=== PATIENT | male | born 1990 | race Caucasian/White ===

== ENCOUNTER 2024-12-01 12:04 | Emergency (ER) | payer MEDICARE, MEDICAID, SELFPAY ==
[2024-12-01] VITALS (15 sets, daily range): BP systolic 130–152; BP diastolic 70–97; PULSE 72–82; TEMP 36.6; O2SAT 98–99; BMI 45.0
--- NOTE | 2024-12-01 13:20 | XR_ITS ---
[facility] [place] [id number] Patient Name: COLTON LEE MRN: [id number] date: 1990 Sex: M Assigned Patient Location: ER Current Patient Location: ER Accession/Order Number: [id number] Exam Date: 12/01/2024 15:26 Report Date: 12/01/2024 15:28 At the request of: SABINA HANNON Procedure: XR chest 2V XR chest 2V 12/01/2024 3:03 PM SIGNS AND SYMPTOMS: ^dizziness , cough PROTOCOL: Frontal and lateral radiograph of the chest COMPARISON: None FINDINGS: The trachea is midline. The heart and mediastinal structures are within normal limits. The lung parenchyma is clear. There is a dextro convex curvature of the thoracic spine. XR/XR chest 2V IMPRESSION: No acute cardiopulmonary pathology. Impression dictated by: Brian Carlton M.D. 12/01/2024 3:28 PM Dictation Location: [place] [id number] Electronically authenticated by: [id number] Y Date: 12/01/2024 15:28
--- NOTE | 2024-12-01 13:20 | ECG_ITS ---
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 Measurements Intervals Cope Rate: 76 P: 46 MI: 148 QRS: 22 QRSD: 88 T: 63 QT: 372 QTc: 402 Interpretive Statements [address] ELEV, PROBABLE NORMAL EARLY REPOL PATTERN Nonspecific T wave changes Abnormal ECG No previous ECG available for comparison Electronically Signed On 12-03-2024 15:32:40 EDT by JORGE JULIAN M.D.
--- NOTE | 2024-12-01 13:21 | CT_ITS ---
[address] [address] Patient Name: COLTON Bhakta LEE MRN: [id number] date: 1990 Sex: M Assigned Patient Location: ER Current Patient Location: ER Accession/Order Number: [id number] Exam Date: 12/01/2024 15:17 Report Date: 12/01/2024 15:25 At the request of: SABINA HANNON Procedure: CT abdomen pelvis wo con CT abdomen pelvis wo con 12/01/2024 2:55 PM SIGNS AND SYMPTOMS: ^abd pain, dysuria, recent UTI, cough TECHNIQUE: Multidetector ct axial images of the abdomen and pelvis were obtained without IV contrast. Multiplanar reformats were performed and reviewed to further define anatomy and possible pathology. CT was performed with one or more of the following dose reduction techniques: Automated exposure control, adjustment of the mA and/or kV according to patient size, or use of iterative reconstruction technique. COMPARISON: None. FINDINGS: Lower Chest: There is mild dependent atelectasis in the lung bases. ABDOMEN: Liver: Within normal limits. Bile Ducts: Normal caliber. Gallbladder: There is a stone in the gallbladder lumen. Pancreas: Within normal limits. Spleen: Within normal limits. Adrenals: Within normal limits. Kidneys: Within normal limits. Pelvis: Reproductive Organs: No pelvic masses. Ureters: Within normal limits. Bladder: Within normal limits. Bowel: Normal caliber. There are a few uncomplicated colonic diverticula. There is a normal appendix in the right lower quadrant. Mesenteric Lymph Nodes: No enlarged mesenteric lymph nodes. Peritoneum: No ascites or free air, no fluid collection. Vessels: within normal limits Retroperitoneum: Within normal limits. Abdominal Wall: Within normal limits. Bones: Degenerative changes are noted in the lumbar spine there is a levoconvex curvature at the thoracolumbar junction. CT/CT abdomen pelvis wo con IMPRESSION: No bowel obstruction or obstructive uropathy. No acute intra-abdominal pathology. Uncomplicated colonic diverticula noted. 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 Impression dictated by: Brian Carlton M.D. 12/01/2024 3:25 PM Dictation Location: [place] [address] Electronically authenticated by: [id number] Y Date: 12/01/2024 15:25
[2024-12-01] MEDS: KETOROLAC TROMETHAMINE 30 MG/ML VIAL IVP (13:43)
[2024-12-01] MEDS: 0.9 % SODIUM CHLORIDE 1,000 ML 1000 ML IV (13:44)
[2024-12-01 13:54] LABS: Hematocrit 44.5 % (42.0-54.0); Hemoglobin 14.5 g/dL (14.0-18.0); Immature Granulocytes Abs Auto 0.08 10^3/uL (0.00-0.03); Immature Granulocytes Pct Auto 0.9 % (0.0-0.5); Lymphocytes Absolute Auto 2.0 10^3/uL (1.2-3.8); Mean Corpuscular HGB Conc 32.6 g/dL (29.9-35.2); Mean Corpuscular Hemoglobin 30.1 pg (25.9-34.0); Mean Corpuscular Volume 92.3 fL (80.0-94.0); Platelet Count 224 10^3/uL (150-450); Red Blood Count 4.82 10^6/uL (4.70-6.10); White Blood Count 8.9 10^3/uL (4.0-11.0)
--- NOTE | 2024-12-01 13:57 | ED.GENADUL1 ---
HPI HPI - General Adult General Chief complaint: Urogenital-Male Stated complaint: DIZZINESS, UTI COMPLAINTS Time Seen by Provider: 12/01/24 13:11 Source: patient and caregiver Mode of arrival: walk-in Limitations: no limitations History of Present Illness HPI narrative: 34-year-old gentleman presents here with a chief complaint of dizziness and dysuria. Patient recently completed a dose of Augmentin due to UTI. Patient does live in an assisted living and has 24-hour nursing care. He and the nurses deny any sexual activity. 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 He denies eating prior to going to work this morning. She states she brought him in due to dizziness episode. he is asymptomatic at this time Related Data Previous Rx's ?Medication ?Instructions ?Recorded fluconazole 100 mg tablet 100 mg PO ONCE #1 tab 12/01/24 (Diflucan) Allergies Allergy/AdvReac Type Severity Reaction Status Date / Time No Known Drug Allergies Allergy Verified 12/01/24 12:15 Opioid HPI Opioid Management Most Recent Opioid Data: Last Pain Scale 6 Today, 13:43 Last MAR Pain Assessment Today, 13:43 Review of Systems ROS Status of ROS 10 or more systems reviewed and unremarkable except as noted in history and below Exam Narrative Exam Narrative: All Systems are negative except as noted/marked.All systems reviewed and otherwise negative Nurses note and vital signs reviewed and patient is not hypoxic. General: The patient appears well and in no apparent distress. Patient is resting comfortably on cart. Skin: Warm, dry, no pallor noted. There is no rash noted. Head: Normocephalic, atraumatic Eye: Normal conjunctiva, no drainage, EOMI. PERRL Ears, Nose, Mouth, and Throat: oral mucosa is moist. Nares patent. Mouth without vesicles. Ear canals patent. Tm's without Erythema Cardiovascular: Regular Rate and Rhythm Respiratory: Patient is in no distress, no accessory muscle use, lungs are clear to auscultation, no wheezing, rales or rhonchi Back: non-tender, no CVA tenderness bilaterally to percussion. GI: Normal bowel sounds, no tenderness to palpation, no masses appreciated. No rebound, guarding, or rigidity noted. Musculoskeletal: The patient has no evidence of calf tenderness, no pitting edema, symmetrical pulses noted bilaterally gu: no rashes or testicular swelling, undecended testical Neurological: A&O x3 , normal speech Psychiatric: Cooperative Constitutional Vital Signs, click to edit/add: Last Vital Signs Temp 97.9 F 12/01/24 12:10 Pulse 79 12/01/24 12:10 Resp 18 12/01/24 12:10 BP 148/97 H 12/01/24 12:10 Pulse Ox 99 12/01/24 12:10 O2 Del Method Room Air 12/01/24 12:10 Course Vital Signs Vital signs: Vital Signs Temperature 97.9 F 12/01/24 12:10 Pulse Rate 79 12/01/24 12:10 Respiratory Rate 18 12/01/24 12:10 Blood Pressure 148/97 H 12/01/24 12:10 Pulse Oximetry 99 12/01/24 12:10 Oxygen Delivery Method Room Air 12/01/24 12:10 Temperature 97.9 F 12/01/24 12:10 Pulse Rate 79 12/01/24 12:10 Respiratory Rate 18 12/01/24 12:10 Blood Pressure 148/97 H 12/01/24 12:10 Pulse Oximetry 99 12/01/24 12:10 Oxygen Delivery Method Room Air 12/01/24 12:10 Medical Decision Making MDM Narrative Medical decision making narrative: 34-year-old gentleman presents here with a chief complaint of dizziness and dysuria. Patient recently completed a dose of Augmentin due to UTI. Patient does live in an assisted living and has 24-hour nursing care. He and the nurses deny any sexual activity. 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 He denies eating prior to going to work this morning. She states she brought him in due to dizziness episode. he is asymptomatic at this time Upon arrival to the emergency room, IV was established patient is alert and oriented. He has able to tell me his history. Nurse states he does often fabricate symptoms, . Patient states he was dizzy while at work. He is asymptomatic at this time. Workup including CBC CMP urinalysis and troponin were all negative EKG was also negative. Patient was given IV fluids. He does continue to complain of dysuria. CT scan of the abdomen pelvis showed no acute stones or abnormality. Differential Diagnosis Differential Diagnosis: uti, kidney stone, dizziness Medical Records Medical records reviewed: Yes I reviewed the patient's medical records Lab Data Lab results reviewed: Yes I reviewed the patient's lab results Labs: Lab Results 12/01/24 12/01/24 12/01/24 Range/Units 13:00 13:28 15:20 WBC 8.9 (4.0-11.0) 10^3/uL RBC 4.82 (4.70-6.10) 10^6/uL Hgb 14.5 (14.0-18.0) g/dL Hct 44.5 (42.0-54.0) % MCV 92.3 (80.0-94.0) fL MCH 30.1 (25.9-34.0) pg MCHC 32.6 (29.9-35.2) g/dL RDW 13.5 (11.0-15.0) % Plt Count 224 (150-450) 10^3/uL MPV 10.3 (9.5-13.5) fL Neut % (Auto) 65.2 (43.0-75.0) % Lymph % (Auto) 22.4 (20.5-60.0) % [place] % (Auto) 8.2 (1.7-12.0) % Eos % (Auto) 2.9 (0.9-7.0) % Baso % (Auto) 0.4 (0.2-2.0) % Neut # (Auto) 5.8 (1.4-6.5) 10^3/uL Lymph # (Auto) 2.0 (1.2-3.8) 10^3/uL [place] # (Auto) 0.7 (0.3-0.8) 10^3/uL Eos # (Auto) 0.3 (0.0-0.7) 10^3/uL Baso # (Auto) 0.0 (0.0-0.1) 10^3/uL Abs Immat Gran (auto) 0.08 H (0.00-0.03) 10^3/uL Imm/Tot Granulo (auto) 0.9 H (0.0-0.5) % Sodium 142 (136-145) mmol/L Potassium 4.3 (3.5-5.1) mmol/L Chloride 105 (98-107) mmol/L Carbon Dioxide 30.4 (21.0-32.0) mmol/L Anion Gap 10.9 BUN 22.0 H (7.0-18.0) mg/dL Creatinine 0.64 L (0.70-1.30) mg/dL Est GFR ( Amer) >60 (>=60 mL/min/1.73m^2) Est GFR (Non-Af Amer) >60 (>=60 mL/min/1.73m^2) BUN/Creatinine Ratio 34.4 Glucose 95 (74-106) mg/dL Calcium 8.7 (8.5-10.1) mg/dL Total Bilirubin 0.2 (0.2-1.0) mg/dL AST 54 H (15-37) U/L ALT 47 (16-63) U/L Alkaline Phosphatase 64 (46-116) U/L Troponin I High Sens 6.1 (4.0-76.1) pg/mL Total Protein 7.6 (6.4-8.2) g/dL Albumin 3.6 (3.4-5.0) g/dL Globulin 4.0 g/dL Albumin/Globulin Ratio 0.9 Urine Color Lt. yellow (YELLOW) Urine Clarity Clear (CLEAR) Urine pH 7.0 (5.0-9.0) Ur Specific [place] 1.010 (1.005-1.025) Urine Protein Negative (NEG/TRACE) mg/dL Urine Glucose (UA) Negative (NEGATIVE) mg/dL Urine Ketones Negative (NEGATIVE) mg/dL Urine Occult Blood Negative (NEGATIVE) Urine Nitrite Negative (NEGATIVE) Urine Bilirubin Negative (NEGATIVE) Urine Urobilinogen 0.2 (0.2-1.0) EU/dL Ur Leukocyte Esterase Negative (NEGATIVE) Urine RBC None seen (0-2) #/HPF Urine WBC None seen (NONE SEEN) #/HPF Ur Squamous Epith Cells Rare (NONE/RARE) #/LPF Urine Crystals Seen A (None Seen) #/HPF Amorphous Sediment Moderate Urine Bacteria Trace A (NONE SEEN) #/HPF Urine Casts None seen (NONE SEEN) #/LPF Urine Mucus None seen (NONE SEEN) POC Glucose 99 (74-106) mg/dL Imaging Data Chest x-ray: Radiologist's impression: ITS Impressions Chest X-Ray 12/01/24 13:20 IMPRESSION: No acute cardiopulmonary pathology. Impression dictated by: Brian Carlton M.D. 12/01/2024 3:28 PM Dictation Location: [facility] Electronically authenticated by: [id number] Y Date: 12/01/2024 15:28 Abdomen/Pelvis CT 12/01/24 13:21 IMPRESSION: No bowel obstruction or obstructive uropathy. No acute intra-abdominal pathology. Uncomplicated colonic diverticula noted. 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 Impression dictated by: Brian Carlton M.D. 12/01/2024 3:25 PM Dictation Location: [facility] Electronically authenticated by: [id number] Y Date: 12/01/2024 15:25 CT scan - abdomen: Radiologist's impression: ITS Impressions Chest X-Ray 12/01/24 13:20 IMPRESSION: No acute cardiopulmonary pathology. Impression dictated by: Brian Carlton M.D. 12/01/2024 3:28 PM Dictation Location: [facility] Electronically authenticated by: [id number] Y Date: 12/01/2024 15:28 Abdomen/Pelvis CT 12/01/24 13:21 IMPRESSION: No bowel obstruction or obstructive uropathy. No acute intra-abdominal pathology. Uncomplicated colonic diverticula noted. 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 Impression dictated by: Brian Carlton M.D. 12/01/2024 3:25 PM Dictation Location: [facility] Electronically authenticated by: [id number] Y Date: 12/01/2024 15:25 ECG Data Attestation: ?I have reviewed the pertinent ECG results. Interpretation: 1338 sinus rhythm rate of 76 bpm no ectopy no ST elevation or depression no STEMI Discharge Plan Discharge Chief Complaint: Urogenital-Male Clinical Impression: Dysuria, Dizziness Patient Disposition: Home, Self-Care Time of Disposition Decision: 15:42 Condition: Good Prescriptions / Home Meds: New fluconazole [Diflucan] 100 mg tablet 100 mg PO ONCE Qty: 1 0RF Print Language: Tunisian Instructions: Dysuria (ED), Dizziness (ED) Referrals: Kala Marcano NP [Primary Care Provider] - 1 week
[2024-12-01 14:06] LABS: Alanine Aminotransferase 47 U/L (16-63); Albumin Globulin Ratio 0.9; Albumin Level 3.6 g/dL (3.4-5.0); Alkaline Phosphatase 64 U/L (46-116); Anion Gap 10.9; Aspartate Amino Transferase 54 U/L (15-37); Blood Urea Nitrogen 22.0 mg/dL (7.0-18.0); Calcium 8.7 mg/dL (8.5-10.1); Carbon Dioxide 30.4 mmol/L (21.0-32.0); Chloride 105 mmol/L (98-107); Estimated GFR (African America >60 (>=60 mL/min/1.73m^2); Estimated GFR (Non-African Ame >60 (>=60 mL/min/1.73m^2); Globulin 4.0 g/dL; Glucose 95 mg/dL (74-106); Potassium 4.3 mmol/L (3.5-5.1); Sodium 142 mmol/L (136-145); Total Protein 7.6 g/dL (6.4-8.2)
[2024-12-01 15:35] LABS: Glucose Urine UA NEGATIVE (NEGATIVE)
[2024-12-01 15:38] LABS: Cast Seen? NONE SEEN #/LPF (NONE SEEN); Crystals Seen? Seen #/HPF (None Seen)
[2024-12-01] MEDS: FLUCONAZOLE 100 MG TABLET PO (16:06)
== END 2024-12-01 16:15 | disposition home or self-care (01) ==
PROVIDERS: Physician Assistant; Emergency Provider Emergency Medicine; Family Provider Family Medicine; PCP Nurse Practitioner Family
DX: R42 Dizziness and giddiness (principal); R30.0 Dysuria; Z87.440 Personal history of urinary (tract) infections
CPT/HCPCS: 36415; 71046; 74176; 80053; 81001; 84484; 85025; 93005; 96361; 96374; 99285; J1885